=== PATIENT | male | born 1980 | race African-American/Black ===

== ENCOUNTER 2018-09-01 14:08 | Emergency (ER) | payer MEDICAID ==
[~2018-09-01] VITALS: Ht 180.3 cm; Wt 87.0 kg
[2018-09-01] MEDS ORDERED: METHOCARBAMOL 750MG TABLET PO STA (15:11)
[2018-09-01] MEDS ORDERED: HYDROCODONE/ACETAMINOPHEN 5/325MG TABLET PO ONE (15:15)
[2018-09-01] MEDS ORDERED: KETOROLAC 60MG/2ML VIAL IM ONE (15:15)
[2018-09-01 15:35] VITALS: BP 170/81
== END 2018-09-01 16:05 | disposition home or self-care (01) ==
LOC: ER 14:08
DX: M62.838 Other muscle spasm (principal)
CPT/HCPCS: 96372; 99283; J1885

== ENCOUNTER 2019-01-23 14:31 | Emergency (ER) | payer MEDICAID ==
[~2019-01-23] VITALS: Ht 180.3 cm; Wt 90.0 kg
[2019-01-23] MEDS ORDERED: SODIUM CHLORIDE 0.9% 1,000 ML IV ONE (15:18)
[2019-01-23] MEDS ORDERED: ONDANSETRON HCL 4MG/2ML INJ IV STA (15:18)
[2019-01-23] MEDS ORDERED: MORPHINE SULFATE 4 MG/ML CPJ (NOT FOR IM USE) IV STA (15:18)
[2019-01-23] MEDS ORDERED: NITROGLYCERIN 0.4MG TABLET SL SL PRN (15:30)
[2019-01-23 16:02] LABS: BASOPHILS % 1.2 % (0.0-2.0); EOSINOPHILS % 1.8 % (0.0-5.0); HEMATOCRIT. 40.1 % (42.0-52.0); HEMOGLOBIN. 13.6 g/dL (14.0-18.0); MEAN CORPUSCULAR HEMOGLOBIN 30.3 pg (28.0-32.0); MEAN CORPUSCULAR VOLUME 89.5 fL (80.0-94.0); MEAN PLATELET VOLUME 8.7 fl (7.4-10.4); MONOCYTES % 11.2 % (2.0-8.0); NEUTROPHILS % 68.8 % (40.0-76.0); PLATELET 265 x1000/uL (130-400); RED BLOOD CELL COUNT 4.48 mill/uL (4.7-6.1); RED CELL DISTRIBUTION WIDTH 12.8 % (11.6-14.6)
[2019-01-23 16:05] LABS: CHLORIDE 100 mEq/L (98-107)
[2019-01-23 16:10] LABS: D-DIMER 0.35 mg/L FEU (<0.50); PARTIAL THROMBOPLASTIN TIME 28.5 sec (23.4-31.0); PROTHROMBIN TIME 10.6 sec (9.6-11.0)
[2019-01-23 19:45] LABS: CLARITY URINE CLEAR (CLEAR); COLOR URINE YELLOW (YELLOW); KETONES URINE NEGATIVE (NEGATIVE); LEUKOCYTE ESTERASE URINE NEGATIVE (NEGATIVE); NITRITE URINE NEGATIVE (NEGATIVE); OCCULT BLOOD URINE NEGATIVE (NEGATIVE); PH URINE 5.5 (4.5-8.0); PROTEIN URINE NEGATIVE (NEGATIVE); SPECIFIC GRAVITY URINE 1.013 (1.005-1.030)
[2019-01-23 20:14] LABS: *AMPHETAMINES SCREEN URINE NEGATIVE (NEGATIVE); *BARBITURATES SCREEN URINE NEGATIVE (NEGATIVE); *BENZODIAZEPINES SCREEN URINE NEGATIVE (NEGATIVE); *COCAINE SCREEN URINE NEGATIVE (NEGATIVE); METHADONE URINE SCREEN NEGATIVE (NEGATIVE)
[2019-01-23 20:15] LABS: CANNABINOID URINE SCREEN PRESUMTIVE POSITIVE (NEGATIVE); OPIATES URINE SCREEN PRESUMTIVE POSITIVE (NEGATIVE); PHENCYCLIDINE URINE SCREEN NEGATIVE (NEGATIVE)
[2019-01-23 21:30] VITALS: BP 147/82
== END 2019-01-23 21:36 | disposition home or self-care (01) ==
LOC: ER 14:31
DX: R07.89 Other chest pain (principal); M25.571 Pain in right ankle and joints of right foot; M79.671 Pain in right foot; R10.9 Unspecified abdominal pain; J45.909 Unspecified asthma, uncomplicated; I10 Essential (primary) hypertension; F17.200 Nicotine dependence, unspecified, uncomplicated
CPT/HCPCS: 36415; 71045; 73610; 73630; 74176; 80053; 80305; 81003; 83690; 83880; 84484; 85025; 85379; 85610; 85730; 93005; 96374; 96375; 99284; J2270; J2405; J7030

== ENCOUNTER 2020-02-27 17:04 | Emergency (ER) | payer MEDICAID ==
[~2020-02-27] VITALS: Ht 180.3 cm; Wt 90.7 kg
[2020-02-27 17:30] VITALS: BP 150/101
[2020-02-27] MEDS ORDERED: KETOROLAC 60MG/2ML VIAL IM STA (18:54)
[2020-02-27] MEDS ORDERED: ONDANSETRON HCL 4MG/2ML INJ IM ONE (19:00)
[2020-02-27] MEDS ORDERED: ALBUTEROL 6.7GM HFA INHALER ORI ONE (19:00)
== END 2020-02-27 21:30 | disposition home or self-care (01) ==
LOC: ER 17:04
DX: Z03.818 Encounter for observation for suspected exposure to other biological agents ruled out (principal); J20.9 Acute bronchitis, unspecified; J45.909 Unspecified asthma, uncomplicated; R03.0 Elevated blood-pressure reading, without diagnosis of hypertension; M10.9 Gout, unspecified
CPT/HCPCS: 71045; 87635; 94640; 96372; 99284; J1885; J2405

== ENCOUNTER 2023-07-16 21:16 | Emergency (ER) | payer MEDICAID ==
[~2023-07-16] VITALS: Ht 180.3 cm; Wt 100.0 kg
[2023-07-16 21:35] VITALS: O2SAT 100
[2023-07-16] MEDS ORDERED: DICL50TA9 MT (23:06)
[2023-07-16] MEDS ORDERED: LIDO700A15 TP (23:06)
[2023-07-16] MEDS: KETOROLAC 15MG/ML VIAL IM ONE (23:18)
[2023-07-16] MEDS: ACETAMINOPHEN 325MG TABLET PO ONE (23:19)
[2023-07-16 23:34] VITALS: BP 138/83; PULSE 100; RESP 20; TEMP 98
== END 2023-07-16 23:37 | disposition home or self-care (01) ==
LOC: ER 21:16
DX: M79.605 Pain in left leg (principal); J45.909 Unspecified asthma, uncomplicated
CPT/HCPCS: 99283; 96372; J1885